=== PATIENT | female | born 1950 | race Caucasian/White ===

== ENCOUNTER → 2017-07-18 | Outpatient (CLI) | payer BC ==
[2014-06-04 19:30] VITALS: BP 120/65
--- NOTE | 2017-07-18 14:56 | CARD ---
APPROVED REPORT EXAM: Two-dimensional and M-mode echocardiogram with Doppler and color Doppler. Other Information Quality : Good INDICATION Palpitations Murmur 2D DIMENSIONS RVDd2.2 (2.9-3.5cm)Left Atrium(2D)2.9 (1.6-4.0cm) IVSd1.0 (0.7-1.1cm)Aortic Root(2D)2.6 (2.0-3.7cm) LVDd4.8 (3.9-5.9cm)LVOT Diameter1.9 (1.8-2.4cm) PWd1.0 (0.7-1.1cm)LVDs3.1 (2.5-4.0cm) FS (%) 30.0 %SV68.9 ml LVEF(%)60.0 (>50%) Aortic Valve AoV Peak Sheldon.151.6cm/sAoV VTI32.0cm AO Peak GR.9.2mmHgLVOT Peak Sheldon.111.2cm/s LVOT VTI 24.39cmAO Mean GR.4mmHg BUD (VMAX)2.03dg5AMC (VTI)2.13cm2 Mitral Valve MV E Qpsyjbst97.2cm/sMV DECEL REBM065af MV A Lcwohzov83.4cm/sMV ZBM11xi E/A Ratio0.9MVA (PHT)3.81cm2 TDI E/Lateral E'10.5E/Medial E'12.3 Tricuspid Valve TR P. Tomnwkmu783yf/sRAP LIORMZID7foEi TR Peak Gr.76esKlOOEC84otQc Pulmonary Vein S1 Qexcrxks99.0cm/sD2 Uyitsbgi63.4cm/s PVa [id number] LEFT VENTRICLE The left ventricle is normal size. There is normal left ventricular wall thickness. The left ventricu lar systolic function is normal. The Ejection Fraction is 55-60%. There is normal LV segmental wall m otion. Transmitral Doppler flow pattern is Grade I-abnormal relaxation pattern. RIGHT VENTRICLE The right ventricle is normal size. The right ventricular systolic function is normal. ATRIA The left atrium size is normal. The right atrium size is normal. The interatrial septum is intact wit h no evidence for an atrial septal defect or patent foramen ovale as noted on 2-D or Doppler imaging. AORTIC VALVE The aortic valve is normal in structure and function. Doppler and Color Flow revealed no significant aortic regurgitation. There is no significant aortic valvular stenosis. MITRAL VALVE The mitral valve is normal in structure and function. There is no evidence of mitral valve prolapse. There is no mitral valve stenosis. Doppler and Color-flow revealed trace to mild mitral regurgitation . TRICUSPID VALVE The tricuspid valve is normal in structure and function. Doppler and Color Flow revealed mild to mode rate tricuspid regurgitation. The PA pressure was estimated at 30 mmHg. There is no tricuspid valve s tenosis. PULMONIC VALVE The pulmonary valve is normal in structure and function. Doppler and Color Flow revealed no pulmonic valvular regurgitation. There is no pulmonic valvular stenosis. GREAT VESSELS The aortic root is normal in size. The ascending aorta is normal in size. The IVC is normal in size a nd collapses >50% with inspiration. PERICARDIAL EFFUSION There is no evidence of significant pericardial effusion. Critical Notification Critical Value: No <Conclusion> The left ventricular systolic function is normal. The Ejection Fraction is 55-60%. There is normal LV segmental wall motion. Transmitral Doppler flow pattern is Grade I-abnormal relaxation pattern. Trace to mild mitral regurgitation. Mild to moderate tricuspid regurgitation. The PA pressure was estimated at 30 mmHg. There is no evidence of significant pericardial effusion.
== END | disposition home or self-care (01) ==
LOC: ECHO 13:33
PROVIDERS: ATTEND Internal Medicine Cardiovascular Disease
DX: I08.1 Rheumatic disorders of both mitral and tricuspid valves (principal); R01.1 Cardiac murmur, unspecified; R00.2 Palpitations
CPT/HCPCS: 93306